=== PATIENT | female | born 1995 | race African-American/Black ===

== ENCOUNTER 2019-11-24 09:15 | Emergency (ER) | payer MEDICAID ==
[~2019-11-24] VITALS: Ht 162.6 cm; Wt 57.7 kg
[2019-11-24 09:20] VITALS: Ht 162.6 cm; Wt 57.7 kg
[2019-11-24 09:55] LABS: BILIRUBIN NEGATIVE (NEGATIVE); GLUCOSE NEGATIVE (NEGATIVE); KETONE NEGATIVE (NEGATIVE); NITRITE POSITIVE (NEGATIVE); SPECIFIC GRAVITY 1.015 (1.005-1.020); UROBILINOGEN NORMAL (NORMAL)
[2019-11-24 09:56] LABS: BACTERIA MANY /hpf (NEGATIVE); EPITHELIAL CELLS 0-5 /hpf (0-5); RED CELLS - URINE 0-5 /hpf (0-5); WHITE CELLS - URINE OCC /hpf (NEGATIVE)
[2019-11-24 10:25] LABS: HCG SERUM NEGATIVE (NEGATIVE)
[2019-11-24 10:41] VITALS: BP 103/70
[2019-11-25 10:08] LABS: RAPID PLASMA REAGIN Reactive (Non Reactive); TREPONEMA PALLIDUM AB Reactive (Non Reactive)
== END 2019-11-24 11:03 | disposition home or self-care (01) ==
LOC: D.ER 09:15
PROVIDERS: Emergency Medicine
DX: Z20.2 Contact with and (suspected) exposure to infections with a predominantly sexual mode of transmission (principal); A59.9 Trichomoniasis, unspecified

== ENCOUNTER 2019-12-04 18:22 | Emergency (ER) | payer MEDICAID ==
[~2019-12-04] VITALS: Ht 162.6 cm; Wt 57.7 kg
[2019-12-04 18:40] VITALS: BP 135/75; Ht 162.6 cm; Wt 57.7 kg
== END 2019-12-04 19:23 | disposition left against medical advice (07) ==
LOC: D.ER 18:22
DX: R11.10 Vomiting, unspecified (principal)

== ENCOUNTER 2020-01-24 00:57 | Emergency (ER) | payer MEDICAID ==
[~2020-01-24] VITALS: Ht 162.6 cm; Wt 57.7 kg
[2020-01-24 01:02] VITALS: BP 124/92; Ht 162.6 cm; Wt 57.7 kg
[2020-01-24 01:45] LABS: BASOPHILS 0.4 % (0-2); EOSINOPHILS 2.1 % (0-7); HEMATOCRIT 34.8 % (36.0-48.0); HEMOGLOBIN 10.8 g/dL (12-16); LYMPHOCYTES 43.1 % (15-50); MCH 21.8 pg (26.0-34.0); MCV 70.3 fL (80.0-100.0); MONOCYTES 10.1 % (2-11); NEUTROPHILS 44.3 % (40-80); PLATELET COUNT 158 10x3/uL (130-400); RBC 4.95 10x6/uL (4.00-5.40); RDW 16.1 % (11.5-14.5); WBC 4.8 10x3/uL (4.8-10.8)
[2020-01-24 01:52] LABS: ANION GAP 10.9 mmol/L (8-16); CALCIUM 8.3 mg/dL (8.5-10.1); CARBON DIOXIDE 25.7 mmol/L (21.0-32.0); POTASSIUM - SERUM 3.6 mmol/L (3.5-5.1)
[2020-01-24 01:59] LABS: ALBUMIN 3.4 g/dL (3.4-5.0); BILIRUBIN - TOTAL 0.16 mg/dL (0.2-1.3); C-REACTIVE PROTEIN 0.5 mg/dL (0.0-0.9); PROTEIN - SERUM 7.6 g/dL (6.4-8.2)
[2020-01-24 03:06] LABS: BILIRUBIN NEGATIVE (NEGATIVE); GLUCOSE NEGATIVE (NEGATIVE); HCG URINE NEGATIVE (NEGATIVE); KETONE NEGATIVE (NEGATIVE); NITRITE NEGATIVE (NEGATIVE); SPECIFIC GRAVITY 1.015 (1.005-1.020); UROBILINOGEN NORMAL (NORMAL)
[2020-01-24 03:07] LABS: BACTERIA FEW /hpf (NEGATIVE); EPITHELIAL CELLS 0-5 /hpf (0-5); RED CELLS - URINE 0-5 /hpf (0-5); WHITE CELLS - URINE NSEEN /hpf (NEGATIVE)
== END 2020-01-24 02:25 | disposition home or self-care (01) ==
LOC: D.ER 00:57
PROVIDERS: Family Medicine
DX: R07.89 Other chest pain (principal)